=== PATIENT | female | born 1970 | race Caucasian/White ===

== ENCOUNTER 2018-10-07 09:00 | Emergency (ER) | payer BC ==
[2018-10-07 09:07] VITALS: BP 113/65; PULSE 71; TEMP 97.4; BMI 23.3
--- NOTE | 2018-10-07 09:09 | PDOC ---
Attending Attestation - Resident Resident Name: Gabi Toussaint - ED Attending Attestation I have performed the following: I have examined & evaluated the patient, The case was reviewed & discussed with the resident, I agree w/resident's findings & plan, Exceptions are as noted - HPI HPI: 48 yo F history hypothyroid presents with L foot injury. She states that she rolled her ankle while walking 4 days ago, has been having pain ever since. She has been limping due to pain. No other injuries. She has been resting, icing, and elevating it. - Physicial Exam PE: GENERAL: Awake, alert, and fully oriented, in no acute distress EXTREMITIES: L foot with ecchymosis to the dorsum of the foot over the 3rd-5th metatarsals. +Tenderness at the base of the 5th metatarsal. L ankle nontender at both malleoli, FROM. Remainder of extremities with normal range of motion, no edema. No clubbing or cyanosis. No cords, erythema, or tenderness NEUROLOGICAL: Cranial nerves II through XII grossly intact. Normal speech, normal gait. Motor and sensation intact SKIN: Warm, Dry, normal turgor, no rashes or lesions noted. - Medical Decision Making Will obtain XR to r/o Oseguera and pseudo-Oseguera fx.
[2018-10-07] MEDS ORDERED: IBUPROFEN 600 MG TABLET (FP) PO ONE ×2 (09:21→09:23)
--- NOTE | 2018-10-07 09:22 | PDOC ---
History of Present Illness <Sabi Alvarenga - Last Filed: 10/07/18 11:43> - General History Source: Patient Exam Limitations: No Limitations - History of Present Illness Initial Comments: 10/07/18 09:19 Pt is a 48yo F with PMH of Hypothyroidism presenting to ED with complaints of left foot pain x 5 days. Pt states that Shawn night she got out of bed, thinks her foot may have been asleep because she rolled over it and has been unable to fully place weight on it ever since. Pt states the she feels the pain mainly near her toes associated with numbness. She has been afraid to move her ankle and toes since the injury due to fear of pain. She has been taking ibuprofen for the pain which helps a little. She has also been icing and elevating the leg. Denies other trauma, loc, pain in other joints, back pain, fevers, chills. PMD: PMH: hypothyroidism PSH: c section Meds: levothyroxine Allergies: nkda Social: occasional alcohol use <Gabi Toussaint - Last Filed: 10/07/18 12:52> - General Chief Complaint: Injury Stated Complaint: LEFT ANKLE FOOT/INJURY Time Seen by Provider: 10/07/18 09:06 Past History <Sabi Alvarenga - Last Filed: 10/07/18 11:43> - Past Medical History COPD: No Thyroid Disease: Yes - Immunization History Immunization Up to Date: Yes - Suicide/Smoking/Psychosocial Hx Smoking History: Never smoked Have you smoked in the past 12 months: No Information on smoking cessation initiated: No Hx Alcohol Use: No <Gabi Toussaint - Last Filed: 10/07/18 12:52> - Past Medical History Allergies/Adverse Reactions: Allergies Allergy/AdvReac Type Severity Reaction Status Date / Time No Known Allergies Allergy Verified 10/07/18 09:01 Home Medications: Ambulatory Orders Levothyroxine [Synthroid -] 100 mcg PO DAILY 11/04/15 Review of Systems - Review of Systems Constitutional: No: Symptoms Reported HEENTM: No: Symptoms Reported Respiratory: No: Symptoms reported Cardiac (ROS): No: Symptoms Reported ABD/GI: No: Symptoms Reported : No: Symptoms Reported Musculoskeletal: Yes: See HPI, Other (foot pain) Integumentary: No: Bruising, Dryness, Erythema Neurological: No: Symptoms reported <Gabi Toussaint - Last Filed: 10/07/18 12:52> *Physical Exam - Vital Signs Last Vital Signs Temp Pulse Resp BP Pulse Ox 97.4 F L 71 18 113/65 100 10/07/18 09:00 10/07/18 09:00 10/07/18 09:00 10/07/18 09:00 10/07/18 09:00 <Sabi Alvarenga - Last Filed: 10/07/18 11:43> - Vital Signs Last Vital Signs Temp Pulse Resp BP Pulse Ox 97.4 F L 71 18 113/65 100 10/07/18 09:00 10/07/18 09:00 10/07/18 09:00 10/07/18 09:00 10/07/18 09:00 - Physical Exam General Appearance: Yes: Nourished, Appropriately Dressed. No: Apparent Distress HEENT: positive: EOMI, MIMA Neck: positive: Trachea midline, Supple. negative: Lymphadenopathy (R), Lymphadenopathy (L) Respiratory/Chest: positive: Lungs Clear, Normal Breath Sounds Cardiovascular: positive: Regular Rhythm, Regular Rate Vascular Pulses: Dorsalis-Pedis (R): 2+, Doralis-Pedis (L): 2+ Musculoskeletal: positive: Other (L 5th digit tenderness of foot. No bony tenderness of ankle, full passive ROM of ankle). negative: CVA Tenderness Extremity: positive: Normal Capillary Refill Integumentary: positive: Normal Color, Dry, Warm, Ecchymosis (over dorsal aspect of L foot.) Neurologic: positive: manager drive II-XII NML intact, Fully Oriented, Alert, Normal Mood/ Affect, Normal Response, Motor Strength 5/5 <Gabi Toussaint - Last Filed: 10/07/18 12:52> Procedures - Splinting Splint Location: Left: Foot Pre-Proc Neuro Vasc Exam: normal Post-Proc Neuro Vasc Exam: normal Mehran Bandage: yes, 3" Progress: 10/07/18 11:43 Pt was crutch trained in ED. <Sabi Alvarenga - Last Filed: 10/07/18 11:43> ED Treatment Course - Medications Given in the ED: ED Medications Discontinued Medications Generic Name Dose Route Start Last Admin Trade Name Freq PRN Reason Stop Dose Admin Ibuprofen 600 mg 10/07/18 09:21 10/07/18 09:25 Motrin - PO 10/07/18 09:22 600 mg ONCE ONE Administration <Sabi Alvarenga - Last Filed: 10/07/18 11:43> Medical Decision Making - Medical Decision Making 10/07/18 09:23 Pt is a 48yo F with PMH of Hypothyroidism presenting to ED with complaints of left foot pain x 5 days. Pt states that Shawn night she got out of bed, thinks her foot may have been asleep because she rolled over it and has been unable to fully place weight on it ever since. Pt states the she feels the pain mainly near her toes associated with numbness. She has been afraid to move her ankle and toes since the injury due to fear of pain. She has been taking ibuprofen for the pain which helps a little. She has also been icing and elevating the leg. Denies other trauma, loc, pain in other joints, back pain, fevers, chills. Vitals: wnl PE: L foot swelling with bruising over dorsal aspect of L foot, tenderness of 5th digit. full passive ROM of L ankle, sensation intact, able to range digits. no bony tenderness of ankle Ddx includes but not limited to fracture, sprain, osteopenia, malignancy -foot xray -ibuprofen 10/07/18 12:51 no fracture on xray. pt is ambulatory, safe for dc home. given ortho f/u and discharge instructions. pt agrees to plan. <Gabi Toussaint - Last Filed: 10/07/18 12:52> *DC/Admit/Observation/Transfer <Sabi Alvarenga - Last Filed: 10/07/18 11:43> - Discharge Dispostion Decision to Admit order: No <Gabi Toussaint - Last Filed: 10/07/18 12:52> Diagnosis at time of Disposition: Sprain of left foot Qualifiers: Encounter type: initial encounter Qualified Code(s): S93.602A - Unspecified sprain of left foot, initial encounter - Discharge Dispostion Disposition: HOME Condition at time of disposition: Improved - Referrals Referrals: Pamella Franklin NP [Nurse Practitioner] - Lyndon Contreras MD [Staff Physician] - - Patient Instructions Printed Discharge Instructions: DI for Foot Sprain Additional Instructions: You were seen in the emergency room for foot pain. The xray is normal. You most likely have a sprain. You can continue taking ibuprofen or Tylenol for the pain as needed and apply ice for the swelling. Bear weight as tolerated. I recommend following up with an orthopedist. Information is provided below. The office is located here in this building. Come back to the emergency room if pain worsens, you are unable to put any weight on the foot or if any new concerning symptom develops. Thank you
== END 2018-10-07 11:35 | disposition home or self-care (01) ==
LOC: FER 09:00
DX: S93.602A Unspecified sprain of left foot, initial encounter (principal); X58.XXXA Exposure to other specified factors, initial encounter; Y93.89 Activity, other specified; Y92.89 Other specified places as the place of occurrence of the external cause; E03.9 Hypothyroidism, unspecified
CPT/HCPCS: 73610-TC-LT-FY; 73630-TC-LT; 99282-25

== ENCOUNTER 2021-03-18 13:51 | Emergency (ER) | payer SELFPAY ==
[2021-03-18 14:31] VITALS: BP 130/76; PULSE 66; TEMP 98.9; BMI 22.8
== END 2021-03-18 16:37 | disposition home or self-care (01) ==
LOC: JER 13:51
PROC: 3E033NZ Introduction of Analgesics, Hypnotics, Sedatives into Peripheral Vein, Percutaneous Approach (ICD-10-PCS; principal; 2021-03-18)
PROC: 3E033NZ Introduction of Analgesics, Hypnotics, Sedatives into Peripheral Vein, Percutaneous Approach (ICD-10-PCS; 2021-03-18)
DX: S42.201A Unspecified fracture of upper end of right humerus, initial encounter for closed fracture (principal); W01.0XXA Fall on same level from slipping, tripping and stumbling without subsequent striking against object, initial encounter; Y93.02 Activity, running
CPT/HCPCS: 73030-TC-RT-FY; 73060-TC-RT-FY; 73070-TC-RT-FY; 99284-25

== ENCOUNTER 2022-12-16 07:01 | Emergency (ER) | payer BC ==
[2022-12-16 07:23] VITALS: TEMP 97.8; BMI 21.9
[2022-12-16] MEDS ORDERED: ONDANSETRON *ODT* 4 MG TABLET SL ONE (07:35)
[2022-12-16] MEDS ORDERED: ONDANSETRON *ODT* 4 MG TABLET ONE (08:00)
[2022-12-16] MEDS ORDERED: IBUPROFEN 400 MG TABLET (FP) PO ONE ×2 (08:54→09:00)
[2022-12-16] MEDS ORDERED: IBUPROFEN 600 MG TABLET (FP) PO ONE ×2 (09:03→09:19)
[2022-12-16 11:05] VITALS: BP 100/55; PULSE 57; RESP 14
== END 2022-12-16 11:12 | disposition home or self-care (01) ==
LOC: JER 07:01
DX: S82.142A Displaced bicondylar fracture of left tibia, initial encounter for closed fracture (principal); M25.562 Pain in left knee; X50.1XXA Overexertion from prolonged static or awkward postures, initial encounter
CPT/HCPCS: 73562-TC-LT-FY; 73590-TC-LT-FY; 73700-TC-RT; 99284-25; Q0162